=== PATIENT | female | born 1980 | race Caucasian/White ===

== ENCOUNTER 2017-05-23 04:00 | Inpatient (IN) | payer MEDICAID ==
[2017-05-23] MEDS ORDERED: Ampicillin 2 GM in Sodium Chloride 0.9% 100 ML IV ONE (07:11)
[2017-05-23] MEDS ORDERED: Sodium Chloride 0.9% 10 ML Syringe FLUSH PRN (07:12)
[2017-05-23] MEDS ORDERED: Oxytocin/Normal Saline 10 UNIT/1,000 ML BAG IV SCH (12:30)
[2017-05-23] MEDS ORDERED: Lactated Ringers 1,000 ML IV SCH (12:30)
[2017-05-23] MEDS ORDERED: Ibuprofen 800 MG Tab PO PRN (19:15)
[2017-05-24 09:00] VITALS: BP 95/62
--- NOTE | 2017-05-25 08:14 | DISCH ---
DISCHARGE DATE: 05/24/2017 HISTORY OF PRESENT ILLNESS: Ivet Mari is a 36-year-old multigravida female, 1 day . Up, doing well. Cramps and discomfort are satisfactory. Ambulating without difficulty. Lochia and flow moderating. In good spirits. LABORATORY DATA: Hemoglobin 10.5. PHYSICAL EXAMINATION: VITAL SIGNS: Stable. CHEST: Clear. HEART: Regular. ABDOMEN: U-2, perineum intact. : day one, no problems. PLAN: The patient is comfortable with discharge, has good support services. Discharge recommendations given at great length. Followup in 6 to 8 weeks , vitamin one daily, good nutrition, fluids, nursing at present, complementary care. /[id number] CITLALY/BRANT
--- NOTE | 2017-05-27 13:11 | DEL ---
DATE OF DELIVERY: 05/23/2017 HISTORY OF PRESENT ILLNESS: Ivet Mari is a 36-year-old multigravida female, 38+ weeks gestation admitted with spontaneous rupture of membranes. Came down from [place]. Fluid was clear. Contractions were absent, well being and movement were satisfactory. On admission, she was found to have a spontaneous rupture of membranes, clear fluid, satisfactory well being, minimal contractions. She was found to be 2 cm dilated, -2 station, 50% effaced. She was allowed to labor through the course of the morning. heart tones were strong. She is up, ambulating, up in the tub. At noon contractions were noncontributory, Pitocin was started with risks and benefits described. Episodes of mild late decelerations dictated slow increase in Pitocin. Mid to late afternoon, contractions were absent, Pitocin was considered discontinue or keep at same pace, our plan was to discontinue the Pitocin, allowed to ambulate, and proceed accordingly. It should be noted, group B rectovaginal culture negative, in light of spontaneous rupture of membranes without active labor, ampicillin was started per protocol. The patient is aware and in agreement. All of a sudden, labor began in earnest, and she went from 3 to 8 to nearly complete. I was summoned to attend. She was found to have about 9 cm. She was watched closely. Maternal effort was good, pain was measurable, intrathecal not indicated, and she went to complete. With some good coaching, over the course of about 10 minutes of second stage of labor with about 4 quality pushes, delivered in TASNE[place] presentation. No episiotomy was performed. Perineum was protected. Both nares and oropharynx were suctioned, cord was absent, placed in [facility], no difficulty with delivery. Female , weight 6 pounds and 14 ounces, score 9 and 9. She was placed on mom's tummy directly. Stimulated warm clothes, the nursing staff to observe for well being. After about 45 seconds, no further cord activity, was clamped. Three cord vessels identified. Cord blood was obtained for investigations as appropriate. There was spontaneous placental separation, 3 cord vessels intact. Uterine tone was maintained by intravenous Pitocin. Perineum and periurethral or periclitoral area was observed, no tears or abrasions. Uterine tone was excellent, blood loss 100 mL. ASSESSMENT: 1. Term intrauterine , 38+ weeks' gestation. 2. Spontaneous rupture of membranes, augmented labor. 3. A 6 pounds 14 ounces female , scores 9 and 9. 4. Planned nursing. PLAN: Routine nursery course. No complicating issues. Expectations for all to go well. /[id number] CITLALY/BRANT
== END 2017-05-24 20:50 | disposition home or self-care (01) | DRG 775 ==
LOC: FB.OBCHECK 04:00 → FB.OB 04:02 → FB.OBCHECK 04:17 → FB.OB 04:18
PROVIDERS: ADMIT Family Medicine; ATTEND Family Medicine
PROC: 10E0XZZ Delivery of Products of Conception, External Approach (ICD-10-PCS; principal; 2017-05-24)
DX: O76 Abnormality in fetal heart rate and rhythm complicating labor and delivery (principal); Z3A.38 38 weeks gestation of pregnancy; Z37.0 Single live birth; O42.02 Full-term premature rupture of membranes, onset of labor within 24 hours of rupture
CPT/HCPCS: 36415; 59409; 85025; A9270-GY; J0290; J2590; J7030; J7050; J7120